=== PATIENT | male | born 1995 | race Hispanic/Latino ===

== ENCOUNTER 2017-11-28 06:08 | Emergency (ER) | payer OTHER, SELFPAY ==
[2017-11-28] MEDS ORDERED: Ketorolac Tromethamine 60 MG/2 ML VIAL ONE (06:44)
[2017-11-28] MEDS ORDERED: Cyclobenzaprine 10 MG TAB ONE (06:44)
--- NOTE | 2017-11-28 08:32 | RAD ---
LEFT SHOULDER THREE VIEWS: HISTORY: Pain. COMPARISON: None. FINDINGS: Limited evaluation of the glenohumeral joint space. No fracture or dislocation. The visualized left ribs are unremarkable. IMPRESSION: No evidence of fracture or dislocation. POS: [facility]
== END 2017-11-28 08:24 | disposition home or self-care (01) ==
LOC: ERS 06:08
DX: S46.912A Strain of unspecified muscle, fascia and tendon at shoulder and upper arm level, left arm, initial encounter (principal); X58.XXXA Exposure to other specified factors, initial encounter
CPT/HCPCS: 96372; J1885